=== PATIENT | female | born 1960 | race Caucasian/White ===

== ENCOUNTER → 2017-05-25 | Outpatient (CLI) | payer BC ==
--- NOTE | 2017-05-25 14:30 | BD ---
EXAMINATION TYPE: MG DEXA axial skeleton. DATE OF EXAM: 05/25/2017 COMPARISON: DEXA bone scan January 08, 2015 CLINICAL HISTORY: Postmenopausal female Height: 5 FT 4 IN Weight: 129 FRAX RISK QUESTIONS: Alcohol (3 or more units per day): NO Family History (Parent hip fracture): NO Glucocorticoids (More than 3mos): YES (Ex: prednisone, prednisolone, methylprednisolone, dexamethasone, and hydrocortisone). History of Fracture in Adulthood: YES Secondary Osteoporosis: 1. Type 1 Diabetes: NO 2. Hyperthyroidism: NO 3. Menopause before 45: YES 4. Malnutrition: NO 5. Chronic liver disease: NO Rheumatoid Arthritis: NO Current Tobacco Use: NO RISK FACTORS HISTORY OF: Active: YES Postmenopausal woman: PART HYST AGE 44 MEDICATIONS: Additional Medications: HORMONE SUSY, LISINOPRIL, Additional History: BREAST CANCER 2013 CHEMO EXAM MEASUREMENTS: Bone mineral densitometry was performed using the [employer] System. Bone mineral density as measured about the Lumbar spine is: ----- L1-L4(G/cm2): 1.030 T Score Values are as follows: ----- L2: -0.6 ----- L3: -1.7 ----- L4: -1.5 ----- L1-L4: -1.2 Bone mineral density has: Decreased -8.6 % since study of: 2014 Bone mineral density about the R hip (g/cm2): 0.957 Bone mineral density about the L hip (g/cm2): 0.919 T Score values are as follows: -----R Neck: -0.6 -----L Neck: -0.9 -----R Total: -0.2 -----L Total: -0.4 Bone mineral density has: Decreased -5.8 % since study of: 2014 IMPRESSION: Osteopenia (T Score between -2.5 and -1 as noted by T score values in the low back is now present as the bone density is decreased or diminished from prior. There is now slightly increased risk of fract ure and the patient may be considered for treatment. Re-Screen 2-5 years. NOTE: T-SCORE=SD OF THE YOUNG ADULT MEAN.
== END | disposition home or self-care (01) ==
LOC: RADBDWWP 10:29
PROVIDERS: ATTEND Internal Medicine Hematology & Oncology
DX: C50.212 Malignant neoplasm of upper-inner quadrant of left female breast (principal); M85.88 Other specified disorders of bone density and structure, other site; Z79.890 Hormone replacement therapy
CPT/HCPCS: 77080

== ENCOUNTER → 2017-06-11 | Outpatient (CLI) | payer BC ==
--- NOTE | 2017-06-12 21:11 | PE ---
Nuclear medicine PET/CT HISTORY: Breast carcinoma Patient received 14.4 mCi F-18 FDG intravenously in delayed scanning performed from the skull base to the mid thighs. Localization and attenuation correction CT scan was performed. No recent exams for comparison Neck and chest: No evident adenopathy. No suspicious hypermetabolic uptake. No evident lung mass. Eric ateral mastectomies have been performed. Abdomen pelvis: No suspicious hypermetabolic uptake. No evident adenopathy. No liver mass. Patient is post hysterectomy. Osseous structures: No lytic or blastic lesion. No suspicious hypermetabolic uptake. IMPRESSION: No suspicious hypermetabolic uptake is evident.
== END | disposition home or self-care (01) ==
LOC: RADPETMAIN 13:16
PROVIDERS: ATTEND Internal Medicine Hematology & Oncology
DX: C50.212 Malignant neoplasm of upper-inner quadrant of left female breast (principal)
CPT/HCPCS: 78815; A9552

== ENCOUNTER → 2023-02-02 | Outpatient (CLI) | payer OTHER ==
--- NOTE | 2023-02-02 18:58 | BD ---
EXAMINATION TYPE: Axial Bone Density DATE OF EXAM: 02/02/2023 CLINICAL HISTORY: 63 years old Female. ICD-10 CODE: C50.212 Breast Cancer Height: 5 ft 3 3/4 in Weight: 134 FRAX RISK QUESTIONS: Alcohol (3 or more units per day): no Family History (Parent hip fracture): no Glucocorticoids (More than 3mos): no (Ex: prednisone, prednisolone, methylprednisolone, dexamethasone, and hydrocortisone). History of Fracture in Adulthood: yes Secondary Osteoporosis: 1. Type 1 Diabetes: no 2. Hyperthyroidism: no 3. Menopause before 45: yes 4. Malnutrition: no 5. Chronic liver disease: no Rheumatoid Arthritis: no Current Tobacco Use: no RISK FACTORS HISTORY OF: Surgery to Spine/Hip(right/left)/Wrist (right/left): no Family History of Osteoporosis: no Active: yes Diet low in dairy products/other sources of calcium: no Postmenopausal woman: yes Take estrogen and/or progesterone medications: no Lost more than 2 inches in height since high school: no Frequent falls: yes Poor Health: good Hyperparathyroidism: no Adrenal Insufficiency: no MEDICATIONS: Additional Medications: Anastrazole,lisinopril, h2o pill Additional History: EXAM MEASUREMENTS: Bone mineral densitometry was performed using the [employer] System. Bone mineral density as measured about the Lumbar spine is: ----- L1-L4(G/cm2): 0.978 T Score Values are as follows: ----- L1: -1.6 ----- L2: -1.5 ----- L3: -1.8 ----- L4: -1.9 ----- L1-L4: -1.7 Z Score Values are as follows: ----- L1: -0.1 ----- L2: 0.0 ----- L3: -0.3 ----- L4: -0.4 ----- L1-L4: -0.2 Bone mineral density has: decreased -5.0 % since study of: 2017 Bone mineral density about the R hip (g/cm2): 0.932 Bone mineral density about the L hip (g/cm2): 0.877 T Score values are as follows: -----R Neck: -0.8 -----L Neck: -1.2 -----R Total: 0.6 -----L Total: 0.2 Z Score values are as follows: -----R Neck: 0.6 -----L Neck: 0.2 -----R Total: 0.7 -----L Total: 0.7 Bone mineral density has: decreased -1.4 % since study of: 2017 FRAX%s: The graph provided illustrates a 7.4 % chance for a major osteoporotic fx and a 0.5 % chance for the hips probability for fx in 10 years time. IMPRESSION: Osteopenia (T Score between -2.5 and -1). There is slightly increased risk of fracture and the patient may be considered for treatment. Re-Screen 2-5 years. NOTE: T-SCORE=SD OF THE YOUNG ADULT MEAN.
== END | disposition home or self-care (01) ==
LOC: RADBDWWP 10:54
PROVIDERS: ATTEND Internal Medicine Hematology & Oncology
DX: C50.212 Malignant neoplasm of upper-inner quadrant of left female breast (principal); M85.89 Other specified disorders of bone density and structure, multiple sites
CPT/HCPCS: 77080